=== PATIENT | male | born 1995 | race African-American/Black ===

== ENCOUNTER 2023-03-27 18:33 | Emergency (ER) | payer MEDICAID ==
[~2023-03-27] VITALS: Ht 185.4 cm; Wt 92.0 kg
[2023-03-27 18:37] VITALS: BP 155/93; PULSE 103; RESP 16; TEMP 98; O2SAT 100
[2023-03-27 19:42] LABS: BASOPHILS % 0.6 % (0.0-2.0); EOSINOPHILS % 0.5 % (0.0-5.0); HEMATOCRIT. 46.4 % (42.0-52.0); HEMOGLOBIN. 15.6 g/dL (14.0-18.0); LYMPHOCYTES % 37.4 % (20.0-50.0); MEAN CORPUSCULAR HEMOGLOBIN 29.6 pg (28.0-32.0); MEAN CORPUSCULAR HGB CONC 33.6 g/dL (31.0-37.0); MEAN CORPUSCULAR VOLUME 88.1 fL (80.0-94.0); MEAN PLATELET VOLUME 8.1 fl (7.4-10.4); MONOCYTES % 9.4 % (2.0-8.0); NEUTROPHILS % 52.1 % (40.0-76.0); PLATELET 212 x1000/uL (130-400); RED BLOOD CELL COUNT 5.26 mill/uL (4.7-6.1); RED CELL DISTRIBUTION WIDTH 13.3 % (11.6-14.6); WHITE BLOOD COUNT 6.5 x1000/uL (4.5-11.0)
[2023-03-27 19:52] LABS: CHLORIDE 106 mEq/L (98-107); POTASSIUM 3.7 mEq/L (3.5-5.1); SODIUM 137 mEq/L (136-145)
[2023-03-27 19:53] LABS: INDEX HEMOLYSI 1 (1-3); INDEX ICTERIC 1 (1-4); INDEX LIPEMIC 1 (1-3)
[2023-03-27 20:03] LABS: ALANINE AMINOTRANSFERASE 19 IU/L (13-61); ALBUMIN 4.5 g/dL (3.4-5.0); ASPARTATE AMINOTRANSFERASE 19 IU/L (15-37); BILIRUBIN TOTAL 1.5 mg/dL (0.1-1.0); CALCIUM 9.4 mg/dL (8.5-10.1); CARBON DIOXIDE 26 mEq/L (21-32); GLUCOSE 94 mg/dL (70-105); PROTEIN TOTAL 7.8 g/dL (6.0-8.3); UREA NITROGEN BLOOD 12 mg/dL (7-21)
[2023-03-27 20:03] LABS: CLARITY URINE CLEAR (CLEAR); COLOR URINE DARK YELLOW (YELLOW); GLUCOSE URINE NEGATIVE (NEGATIVE); KETONES URINE 1+ (NEGATIVE); LEUKOCYTE ESTERASE URINE 1+ (NEGATIVE); NITRITE URINE NEGATIVE (NEGATIVE); OCCULT BLOOD URINE NEGATIVE (NEGATIVE); PH URINE 5.5 (4.5-8.0); PROTEIN URINE TRACE (NEGATIVE); SPECIFIC GRAVITY URINE 1.036 (1.005-1.030)
[2023-03-27] MEDS ORDERED: ACETAMINOPHEN 325MG TABLET PO NR (20:27)
[2023-03-27] MEDS ORDERED: CEFTRIAXONE SODIUM 500 MG/VIAL IM NR (20:30)
[2023-03-27] MEDS ORDERED: LIDOCAINE HCL 1% 20ML VIAL (Pyxis) INJ INFIL NR (20:30)
[2023-03-27 20:35] LABS: BACTERIA URINE 1+; RBC URINE 0-2 /hpf (0-2); SQUAMOUS EPITHELIAL CELL URINE FEW /lpf (RARE/1+)
[2023-03-27] MEDS ORDERED: ACET-2708 PO (21:18)
[2023-03-27] MEDS ORDERED: DOXY100T28 MT (21:18)
== END 2023-03-27 21:39 | disposition home or self-care (01) ==
LOC: ER 18:33
DX: N34.2 Other urethritis (principal)
CPT/HCPCS: 99283; 87491; 87591; 80053; 81003; 83690; 85025; 87086; 36415; 96372; J0696; J3490

== ENCOUNTER 2025-03-20 11:13 | Emergency (ER) | payer MEDICAID ==
[~2025-03-20] VITALS: Ht 177.8 cm; Wt 95.0 kg
[~2025-03-20 11:13] MED LIST: ACET-2708 PO; DOXY100T28 MT
[2025-03-20 11:24] VITALS: O2SAT 100
[2025-03-20] MEDS: ONDANSETRON 4MG ODT PO ONE (12:46)
[2025-03-20] MEDS ORDERED: ONDA-239 PO (12:52)
[2025-03-20] MEDS ORDERED: IBUP-2028 MT (12:53)
[2025-03-20 13:24] VITALS: BP 139/90; PULSE 53; RESP 14; TEMP 36.8; O2SAT 98
[2025-03-20 14:59] LABS: INFLUENZA TYPE A Presumptive Negative (Pres. Neg.); INFLUENZA TYPE B Presumptive Negative (Pres. Neg.)
== END 2025-03-20 13:24 | disposition home or self-care (01) ==
LOC: ER 11:13
DX: R11.2 Nausea with vomiting, unspecified (principal); Z79.899 Other long term (current) drug therapy; Z20.822 Contact with and (suspected) exposure to COVID-19
CPT/HCPCS: 99285; 71045; 87426; 87804 ×2; 93005; Q0162